=== PATIENT | male | born 1970 | race Hispanic/Latino ===

== ENCOUNTER 2019-09-07 19:55 | Observation (INO) | payer OTHER, MEDICARE ==
[~2019-09-07] VITALS: Ht 172.7 cm; Wt 120.1 kg
[2019-09-07 20:28] LABS: BASOPHILS % (AUTO) 0.6 % (0.0-5.0); EOSINOPHILS % (AUTO) 1.3 % (0.0-8.0); HEMATOCRIT 30.6 % (42-54); MEAN CORPUSCULAR HEMOGLOBIN 34.2 pg (27.0-33.0); MEAN CORPUSCULAR HGB CONC 34.3 g/dL (32.0-36.0); MEAN CORPUSCULAR VOLUME 99.7 fL (79-99); MONOCYTES % (AUTO) 13.2 % (3.0-13.0); NEUTROPHILS % (AUTO) 74.7 % (40.0-77.0); PLATELET COUNT (AUTO) 54 K/uL (130-400); RED BLOOD CELL COUNT(AUTO) 3.07 MIL/uL (4.50-6.20); WHITE BLOOD COUNT (AUTO) 4.7 K/uL (4.8-10.8)
[2019-09-07 20:33] LABS: CREATININE 0.9 mg/dL (0.5-1.5); POTASSIUM 3.4 mmol/L (3.5-5.1)
[2019-09-07 20:37] LABS: INR 1.4 (0.85-1.15); PARTIAL THROMBOPLASTIN TIME 30.2 SEC (26.3-35.5); PROTHROMBIN TIME 14.9 SEC (9.6-11.6)
[2019-09-07 20:38] LABS: ALBUMIN 1.9 g/dL (3.5-5.0); BILIRUBIN,TOTAL 4.5 mg/dL (0.2-1.0); TOTAL PROTEIN, SERUM 6.3 g/dL (6.0-8.3)
[2019-09-07 21:17] LABS: APPEARANCE,URINE Clear (CLEAR); BILIRUBIN,URINE Moderate (NEGATIVE); GLUCOSE, URINE (UA) Negative (NEGATIVE); KETONES,URINE 15 mg/dL (NEGATIVE); LEUKOCYTE ESTERASE ,URINE Small (NEGATIVE); NITRATE,URINE Positive (NEGATIVE); OCCULT BLOOD,URINE Negative (NEGATIVE); PH,URINE 7.5 (5.0-8.0); PROTEIN,URINE Trace mg/dL (NEGATIVE)
[2019-09-07 21:22] LABS: COLOR,URINE Orange (YELLOW)
[2019-09-07 21:26] LABS: PLATELET MORPHOLOGY COMMENT DECREASED
[2019-09-07 21:34] LABS: BACTERIA,URINE Rare /HPF (None Seen); RBC,URINE None Seen /HPF (0-1); SQUAMOUS EPITHELIAL CELL,UR Few /HPF (0-2)
[2019-09-07 23:50] VITALS: BP 109/65
[2019-09-08] MEDS ORDERED: QUET200T29 PO (00:15)
[2019-09-08] MEDS ORDERED: DIAZ5TAB4 PO (00:15)
[2019-09-08] MEDS ORDERED: SPIR50TA PO (00:15)
[2019-09-08] MEDS ORDERED: OMEP20CA12 PO (00:15)
[2019-09-08] MEDS ORDERED: MORPHINE SULFATE 2 MG/ML 1ML SYG IVP ONE (00:30)
--- NOTE | 2019-09-08 00:30 | NUR ---
spoke with sterling sanchez np for patient's severe pain. he ordered morphine 2 mg iv once. i let him know about patient's home medications and he ordered to pass it on in the morning
[2019-09-08 03:45] VITALS: BP 128/85
--- NOTE | 2019-09-08 03:52 | NUR ---
patient refuses to be bathed for paracentesis procedure.
[2019-09-08 08:00] VITALS: BP 125/82
[2019-09-08] MEDS ORDERED: CEFTRIAXONE SODIUM 1 GM IVP SCH (09:00)
[2019-09-08] MEDS ORDERED: LACTULOSE 20 GM/30 ML UDCUP PO SCH (09:00)
[2019-09-08] MEDS ORDERED: SPIRONOLACTONE 25 MG TAB PO SCH (09:00)
[2019-09-08] MEDS ORDERED: HYDROMORPHONE HCL 0.5 MG/0.5 ML ML IVP SCH (10:30)
[2019-09-08] MEDS ORDERED: DIAZEPAM 5 MG TABLET PO SCH ×2 (11:00→21:00)
[2019-09-08 11:27] VITALS: BP 124/84
--- NOTE | 2019-09-08 12:00 | NUR ---
CORRIE NOTES- DCP PLAN MET W PATIENT AT BEDSIDE, PENDING PARACENTESIS, RESTLESS, STATES AMBULATORY, ACTIVE, NO DEM, NO PROVIDER, NO SERVICES, LIVES WIHT DAD FARIBA, DO NOT PUT HIM ON FACE SHEET,MOM ONLY ON FACE SHEET, NUMBERS VERIFIES, STATES DAD WILL PROIVDE TRANSPORT HOEM. 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 STATES FIRST TIME HE HAS HAD A PARACENTESIS. STATES VERY ANXIOUS ABOUT IT. TEACHING DONE. CALLED OT RADIOLOGY, ADVISD THEM OF H/P READY. Addendum: 09/08/19 at 1314 by ELAN RUTHERFORD RN CM Amended: Links added.
--- NOTE | 2019-09-08 13:15 | NUR ---
EXPECTED DISPO--TO BE TO HOME, DAD TO TRANSPORT, NO OTHER NEEDS ANTICIPATED Addendum: 09/08/19 at 1316 by ELAN RUTHERFORD RN CM Amended: Links added.
--- NOTE | 2019-09-08 13:20 | NUR ---
Patient went out for procedure per NORMA Oneal Will attempt to initiate Skilled Physical Therapy Evaluation 09/09/2019. Addendum: 09/08/19 at 1404 by VASU SANTOS, PT PT Amended: Links added.
[2019-09-08] MEDS ORDERED: POTASSIUM CHLORIDE 20 MEQ ERTAB PO PRN (13:30)
[2019-09-08] MEDS ORDERED: POTASSIUM CHLORIDE 10% ELIXIR 20 MEQ/15 ML UDCUP PO PRN (13:30)
[2019-09-08] MEDS ORDERED: LIDOCAINE HCL-MPF 1% 2ML VIAL IV PRN (13:30)
[2019-09-08] MEDS ORDERED: POTASSIUM CHLORIDE 20MEQ/100ML 100 ML IV PRN (13:30)
--- NOTE | 2019-09-08 13:52 | NUR ---
U/S GD PARACENTESIS PROCEDURE PERFORMED BY DR. COLEMAN. PUNCTURE SITE RIGHT LOWER QUADRANT OF ABDOMEN AND PATIENT TOLERATED PROCEDURE WELL. TOTAL REMOVED 6.65 LITERS OF CLOUDY YELLOW FLUID. END OF PROCEDURE AT 1340. CATHETER REMOVED AND DRESSING APPLIED. NO BLEEDING NOTED. ALBUMIN 25% 50 GRAMS ORDERED PER [facility] [place] [facility]. REPORT GIVEN TO Rosi ROMO LVN AND PATIENT TRANSPORTED TO [facility] VIA W/C, STABLE, AAO X3 WITH NO C/O PAIN. SPECIMEN SENT TO LAB.
--- NOTE | 2019-09-08 13:55 | NUR ---
PARACENTESIS PROCEDURE PERFORMED BY DR. COLEMAN. PUNCTURE SITE RIGHT LOWER QUADRANT OF ABDOMEN, DRESSING CLEAN AND DRY. 6.6 LITERS TAKEN OUT. PT REFUSES POST OP VITAL SIGNS. AND STATES IS GOING TO LEAVE AMA. PT WAS INFORMED OF RISKS TO LEAVING AMA,, SUCH BLOOD PRESSURE DROPPING, FAINTING, PASSING OUT , OR EVEN DYING AND THAT THE HOSPITAL WOULD NOT BE LIABLE BECAUSE HE IS LEAVING AGAINST MEDICAL ADVICE. PT RESPECTFULLY STATES UNDERSTANDING AND STATES WILL SIGN HIMSELF OUT. HE THANKS US FOR EVERYTHING WE HAVE DONE BUT STATES HE WANTS TO LEAVE. CHARGE NURSE YO YANCEY AND CHERISE DELATORRE MADE AWARE.
--- NOTE | 2019-09-08 14:25 | NUR ---
PT SIGNED AMA FORM. I INFORMED PT OF RISKS OF LEAVING AGAINST MEDICAL ADVISE, AND EXPLAINED THAT 6.6 LITERS WAS A LOT OF FLUID REMOVED, PT STATED UNDERSTANDING AND INSISTED IN LEAVING. IPV REMOVED, TIP INTACT. CHARGE NURSE YO YANCEY MADE AWARE.
[2019-09-08] MEDS ORDERED: ALBUMIN (HUMAN) 25% 200 ML IV SCH (14:52)
[2019-09-08 17:09] LABS: APPEARANCE BODY FLUID SLIGHTLY CLOUDY (CLEAR); COLOR,BODY FLUID YELLOW (LT YELLOW); SPECIMENTYPE,BODY FLUID ASCITES; TOTAL VOLUME,BODY FLUID 6600 mL
[2019-09-08 17:11] LABS: BODY FLUID WBC 152 /cu. mm.
[2019-09-08 17:12] LABS: BODY FLUID RBC 497 /cu. mm.
[2019-09-08 17:21] LABS: BF LYMPHOCYTE 27 %; BF MONOCYTE 3 %
[2019-09-08] MEDS ORDERED: QUETIAPINE FUMARATE 100 MG TAB PO SCH (21:00)
== END 2019-09-08 14:55 | disposition left against medical advice (07) ==
LOC: EDH 19:55 → EDHIP 21:50 → 3CH 23:30
PROVIDERS: ADMIT Internal Medicine Critical Care Medicine; ATTEND Internal Medicine Critical Care Medicine
DX: K70.31 Alcoholic cirrhosis of liver with ascites (principal); N39.0 Urinary tract infection, site not specified; F41.1 Generalized anxiety disorder; D69.6 Thrombocytopenia, unspecified; F20.9 Schizophrenia, unspecified; Z87.891 Personal history of nicotine dependence; E43 Unspecified severe protein-calorie malnutrition
CPT/HCPCS: 36415; 49083; 71045; 80053; 81001; 82140; 82550; 83690; 84484; 85025; 85610; 85730; 87071; 87088; 87205; 89051; 93005; 96374; 96375; 99285; A4215; G0378 ×4; J0696; J1170; P9046

== ENCOUNTER → 2019-09-14 | Outpatient (CLI) | payer OTHER, MEDICARE ==
[~2019-09-14] MED LIST: ALBUMIN (HUMAN) 25% 100 ML IV SCH; ALBUMIN (HUMAN) 25% 200 ML IV ONE; ALBUMIN (HUMAN) 25% 200 ML IV SCH; DIAZ5TAB4 PO; OMEP20CA12 PO; QUET200T29 PO; SPIR50TA PO
--- NOTE | 2019-09-14 08:45 | NUR ---
U/S GD PARACENTESIS PROCEDURE PERFORMED BY DR. BAUTISTA. PUNCTURE SITE RIGHT LOWER QUADRANT OF ABDOMEN AND PATIENT TOLERATED PROCEDURE WELL. TOTAL REMOVED 4.1 LITERS OF CLOUDY YELLOW FLUID. END OF PROCEDURE AT 0915. CATHETER REMOVED AND DRESSING APPLIED. NO BLEEDING NOTED. ALBUMIN 25% 25 GRAMS GIVEN DURING PROCEDURE PER [facility] [place] [facility]. LEFT HAND PIV DC'D, BANDAID APPLIED, DRESSING DRY AND INTACT. DISCHARGE INSTRUCTIONS GIVEN TO PATIENT. PATIENT VERBALIZED UNDERSTANDING. PT DISCHARGED AMBULATORY, STABLE, AAO X3 WITH NO C/O PAIN. SPECIMEN SENT TO LAB.
[2019-09-14 11:22] LABS: APPEARANCE BODY FLUID CLOUDY (CLEAR); BODY FLUID WBC 421 /cu. mm.; COLOR,BODY FLUID YELLOW (LT YELLOW); SPECIMENTYPE,BODY FLUID ASCITES; TOTAL VOLUME,BODY FLUID 4100 mL
[2019-09-14 11:23] LABS: BODY FLUID RBC 875 /cu. mm.
[2019-09-14 11:25] LABS: BF LYMPHOCYTE 44 %; BF MONOCYTE 49 %
== END | disposition home or self-care (01) ==
LOC: RAH 07:29
PROVIDERS: ATTEND Family Medicine
DX: K70.31 Alcoholic cirrhosis of liver with ascites (principal); F10.10 Alcohol abuse, uncomplicated; I10 Essential (primary) hypertension; F31.9 Bipolar disorder, unspecified; K21.9 Gastro-esophageal reflux disease without esophagitis; E66.9 Obesity, unspecified; F13.20 Sedative, hypnotic or anxiolytic dependence, uncomplicated; Z82.61 Family history of arthritis; Z83.3 Family history of diabetes mellitus; Z68.31 Body mass index [BMI] 31.0-31.9, adult
CPT/HCPCS: 49083; 87071; 87205; 89051; A4215; P9046 ×2; 96365

== ENCOUNTER 2019-09-19 09:28 | Emergency (ER) | payer OTHER, MEDICARE ==
[~2019-09-19 09:28] MED LIST changes: -ALBUMIN (HUMAN) 25% 100 ML IV SCH; -ALBUMIN (HUMAN) 25% 200 ML IV ONE; -ALBUMIN (HUMAN) 25% 200 ML IV SCH
[2019-09-19] MEDS ORDERED: ACETAMINOPHEN EXTRA STRENGTH 500 MG TABLET ONE (10:03)
[2019-09-19 10:36] LABS: BASOPHILS % (AUTO) 1.4 % (0.0-5.0); EOSINOPHILS % (AUTO) 3.6 % (0.0-8.0); HEMATOCRIT 34.1 % (42-54); LYMPHOCYTES % (AUTO) 20.8 % (21.0-51.0); MEAN CORPUSCULAR HEMOGLOBIN 34.3 pg (27.0-33.0); MEAN CORPUSCULAR HGB CONC 34.9 g/dL (32.0-36.0); MEAN CORPUSCULAR VOLUME 98.3 fL (79-99); MONOCYTES % (AUTO) 12.8 % (3.0-13.0); NEUTROPHILS % (AUTO) 61.2 % (40.0-77.0); PLATELET COUNT (AUTO) 194 K/uL (130-400); RED BLOOD CELL COUNT(AUTO) 3.47 MIL/uL (4.50-6.20); RED CELL DISTRIBUTION WIDTH 15.8 % (11.0-15.5); WHITE BLOOD COUNT (AUTO) 5.8 K/uL (4.8-10.8)
[2019-09-19 10:45] LABS: CREATININE 0.6 mg/dL (0.5-1.5)
[2019-09-19 10:48] LABS: APPEARANCE,URINE Clear (CLEAR); BILIRUBIN,URINE Negative (NEGATIVE); COLOR,URINE Yellow (YELLOW); GLUCOSE, URINE (UA) Negative (NEGATIVE); KETONES,URINE Negative (NEGATIVE); LEUKOCYTE ESTERASE ,URINE Negative (NEGATIVE); NITRATE,URINE Negative (NEGATIVE); OCCULT BLOOD,URINE Negative (NEGATIVE); PROTEIN,URINE Negative (NEGATIVE); UROBILINOGEN,URINE 0.2 mg/dL (0.2-1.0)
[2019-09-19 10:55] LABS: AMPHET/METH SCREEN,URINE NEGATIVE (NEGATIVE); BARBITURATE SCREEN, URINE NEGATIVE (NEGATIVE); BENZODIAZEPINES SCREEN,URINE POSITIVE (NEGATIVE); CANNABINOID SCREEN,URINE NEGATIVE (NEGATIVE); COCAINE SCREEN,URINE NEGATIVE (NEGATIVE); OPIATE SCREEN,URINE NEGATIVE (NEGATIVE); PHENCYCLIDINE SCREEN,URINE NEGATIVE (NEGATIVE)
[2019-09-19 10:59] LABS: ALBUMIN 2.2 g/dL (3.5-5.0); BILIRUBIN,TOTAL 1.4 mg/dL (0.2-1.0); TOTAL PROTEIN, SERUM 6.9 g/dL (6.0-8.3)
[2019-09-19 11:05] LABS: INR 1.36 (0.85-1.15); PARTIAL THROMBOPLASTIN TIME 31.1 SEC (26.3-35.5); PROTHROMBIN TIME 14.5 SEC (9.6-11.6)
== END 2019-09-19 12:45 | disposition home or self-care (01) ==
LOC: EDH 09:28
DX: K40.90 Unilateral inguinal hernia, without obstruction or gangrene, not specified as recurrent (principal); K70.31 Alcoholic cirrhosis of liver with ascites; R79.1 Abnormal coagulation profile; F10.229 Alcohol dependence with intoxication, unspecified; F20.9 Schizophrenia, unspecified; Z88.1 Allergy status to other antibiotic agents; Y90.8 Blood alcohol level of 240 mg/100 ml or more
CPT/HCPCS: 36415; 74176; 76870; 80053; 80305; 81003; 85025; 85610; 85730; 99285; G0480

== ENCOUNTER 2020-01-03 18:51 | Emergency (ER) | payer OTHER, MEDICARE ==
[2020-01-03 19:54] LABS: EOSINOPHILS % (AUTO) 3.9 % (0.0-8.0); HEMATOCRIT 28.4 % (42-54); LYMPHOCYTES % (AUTO) 37.4 % (21.0-51.0); MEAN CORPUSCULAR HEMOGLOBIN 32.9 pg (27.0-33.0); MEAN CORPUSCULAR HGB CONC 35.2 g/dL (32.0-36.0); MEAN CORPUSCULAR VOLUME 93.4 fL (79-99); MONOCYTES % (AUTO) 10.4 % (3.0-13.0); PLATELET COUNT (AUTO) 53 K/uL (130-400); RED BLOOD CELL COUNT(AUTO) 3.04 MIL/uL (4.50-6.20); RED CELL DISTRIBUTION WIDTH 15.5 % (11.0-15.5); WHITE BLOOD COUNT (AUTO) 3.9 K/uL (4.8-10.8)
[2020-01-03] MEDS ORDERED: FAMOTIDINE 20MG TAB 20 MG TAB ONE (20:03)
[2020-01-03] MEDS ORDERED: ONDANSETRON ODT 4 MG TAB ONE (20:03)
[2020-01-03 20:04] LABS: CARBON DIOXIDE 25 mmol/L (21-32); CHLORIDE 108 mmol/L (101-111); CREATININE 0.7 mg/dL (0.5-1.5); GLOMERULAR FILTR. RATE CALC 128 mL/min (>60); GLUCOSE,RANDOM 91 mg/dL (70-105); POTASSIUM 3.6 mmol/L (3.5-5.1); SODIUM SERUM 142 mmol/L (136-145); UREA NITROGEN, BLOOD 6 mg/dL (7-18)
[2020-01-03 20:10] LABS: ALANINE AMINOTRANSFERASE 23 U/L (12-78); ALBUMIN 3.1 g/dL (3.5-5.0); ASPARTATE AMINOTRANSFERASE 98 U/L (10-37); BILIRUBIN,TOTAL 3.5 mg/dL (0.2-1.0); TOTAL PROTEIN, SERUM 7.6 g/dL (6.0-8.3)
[2020-01-03 20:11] LABS: ACETAMINOPHEN < 1 mcg/mL (10-29); SALICYLATE < 2.8 mg/dL (2.8-20.0)
[2020-01-03 20:16] LABS: ALCOHOL, BLOOD 373 mg/dL (0-10)
[2020-01-03] MEDS ORDERED: LORAZEPAM 2 MG/ML 1 ML VIAL ONE (20:46)
[2020-01-03 21:05] LABS: APPEARANCE,URINE Clear (CLEAR); BILIRUBIN,URINE Negative (NEGATIVE); COLOR,URINE Yellow (YELLOW); GLUCOSE, URINE (UA) Negative (NEGATIVE); KETONES,URINE Negative (NEGATIVE); LEUKOCYTE ESTERASE ,URINE Negative (NEGATIVE); NITRATE,URINE Negative (NEGATIVE); OCCULT BLOOD,URINE Negative (NEGATIVE); PROTEIN,URINE Negative (NEGATIVE)
[2020-01-03 21:12] LABS: AMPHET/METH SCREEN,URINE NEGATIVE (NEGATIVE); BARBITURATE SCREEN, URINE NEGATIVE (NEGATIVE); BENZODIAZEPINES SCREEN,URINE POSITIVE (NEGATIVE); CANNABINOID SCREEN,URINE NEGATIVE (NEGATIVE); COCAINE SCREEN,URINE NEGATIVE (NEGATIVE); OPIATE SCREEN,URINE NEGATIVE (NEGATIVE); PHENCYCLIDINE SCREEN,URINE NEGATIVE (NEGATIVE)
== END 2020-01-03 21:52 ==
LOC: EDH 18:51
DX: F10.129 Alcohol abuse with intoxication, unspecified (principal); R45.6 Violent behavior; F32.9 Major depressive disorder, single episode, unspecified; F20.9 Schizophrenia, unspecified; Z88.1 Allergy status to other antibiotic agents; Y90.8 Blood alcohol level of 240 mg/100 ml or more
CPT/HCPCS: 36415; 80053; 80305; 81003; 85025; 93005; 96372; 99284; G0481; J2060

== ENCOUNTER 2020-01-26 12:09 | Emergency (ER) | payer OTHER, MEDICARE ==
[2020-01-26 13:58] LABS: BASOPHILS % (AUTO) 1.6 % (0.0-5.0); EOSINOPHILS % (AUTO) 4.6 % (0.0-8.0); HEMATOCRIT 32.8 % (42-54); LYMPHOCYTES % (AUTO) 40.2 % (21.0-51.0); MEAN CORPUSCULAR HGB CONC 33.5 g/dL (32.0-36.0); MEAN CORPUSCULAR VOLUME 95.3 fL (79-99); MONOCYTES % (AUTO) 6.9 % (3.0-13.0); NEUTROPHILS % (AUTO) 46.7 % (40.0-77.0); PLATELET COUNT (AUTO) 95 K/uL (130-400); RED BLOOD CELL COUNT(AUTO) 3.44 MIL/uL (4.50-6.20); RED CELL DISTRIBUTION WIDTH 16.7 % (11.0-15.5); WHITE BLOOD COUNT (AUTO) 3.1 K/uL (4.8-10.8)
[2020-01-26 14:14] LABS: CREATININE 0.8 mg/dL (0.5-1.5); INR 1.42 (0.85-1.15); PARTIAL THROMBOPLASTIN TIME 35.7 SEC (26.3-35.5); PROTHROMBIN TIME 15.1 SEC (9.6-11.6)
[2020-01-26 14:20] LABS: ALBUMIN 3.3 g/dL (3.5-5.0); BILIRUBIN,TOTAL 2.3 mg/dL (0.2-1.0); TOTAL PROTEIN, SERUM 8.1 g/dL (6.0-8.3)
== END 2020-01-26 16:08 | disposition home or self-care (01) ==
LOC: EDH 12:09
DX: K70.31 Alcoholic cirrhosis of liver with ascites (principal); F10.129 Alcohol abuse with intoxication, unspecified; R60.0 Localized edema; Z20.828 Contact with and (suspected) exposure to other viral communicable diseases; F20.9 Schizophrenia, unspecified; F32.9 Major depressive disorder, single episode, unspecified; Z88.1 Allergy status to other antibiotic agents; Y90.8 Blood alcohol level of 240 mg/100 ml or more
CPT/HCPCS: 36415; 71045; 80053; 82140; 83880; 85025; 85610; 85730; 87426

== ENCOUNTER 2020-01-27 02:57 | Emergency (ER) | payer OTHER, MEDICARE ==
[2020-01-27 03:20] LABS: BASOPHILS % (AUTO) 1.6 % (0.0-5.0); EOSINOPHILS % (AUTO) 6.1 % (0.0-8.0); HEMATOCRIT 30.9 % (42-54); LYMPHOCYTES % (AUTO) 42.6 % (21.0-51.0); MEAN CORPUSCULAR HGB CONC 34.3 g/dL (32.0-36.0); MEAN CORPUSCULAR VOLUME 93.4 fL (79-99); MONOCYTES % (AUTO) 8.4 % (3.0-13.0); NEUTROPHILS % (AUTO) 41.3 % (40.0-77.0); PLATELET COUNT (AUTO) 92 K/uL (130-400); RED BLOOD CELL COUNT(AUTO) 3.31 MIL/uL (4.50-6.20); RED CELL DISTRIBUTION WIDTH 16.6 % (11.0-15.5); WHITE BLOOD COUNT (AUTO) 3.8 K/uL (4.8-10.8)
[2020-01-27 03:23] LABS: CREATININE 0.8 mg/dL (0.5-1.5); POTASSIUM 3.6 mmol/L (3.5-5.1)
[2020-01-27 03:28] LABS: ALBUMIN 3.2 g/dL (3.5-5.0); BILIRUBIN,TOTAL 2.6 mg/dL (0.2-1.0); TOTAL PROTEIN, SERUM 7.9 g/dL (6.0-8.3)
[2020-01-27] MEDS ORDERED: FUROSEMIDE 10 MG/ML 4ML VIAL ONE (03:32)
== END 2020-01-27 04:04 | disposition home or self-care (01) ==
LOC: EDH 02:57
DX: R60.0 Localized edema (principal); F32.9 Major depressive disorder, single episode, unspecified; F20.9 Schizophrenia, unspecified; Z88.1 Allergy status to other antibiotic agents
CPT/HCPCS: 36415; 80053; 85025; 96374; 99283; J1940

== ENCOUNTER 2020-02-03 17:37 | Emergency (ER) | payer OTHER, MEDICARE ==
[2020-02-03] MEDS ORDERED: DIAZEPAM 5 MG TABLET ONE (18:46)
== END 2020-02-03 19:00 | disposition home or self-care (01) ==
LOC: EDH 17:37
DX: F20.9 Schizophrenia, unspecified (principal); F41.9 Anxiety disorder, unspecified; F32.9 Major depressive disorder, single episode, unspecified; Z88.1 Allergy status to other antibiotic agents

== ENCOUNTER 2020-02-06 14:19 | Emergency (ER) | payer OTHER, MEDICARE ==
[2020-02-06 14:46] LABS: APPEARANCE,URINE Clear (CLEAR); BILIRUBIN,URINE Small (NEGATIVE); COLOR,URINE Dark Yellow (YELLOW); GLUCOSE, URINE (UA) Negative (NEGATIVE); KETONES,URINE Negative (NEGATIVE); LEUKOCYTE ESTERASE ,URINE Small (NEGATIVE); NITRATE,URINE Negative (NEGATIVE); OCCULT BLOOD,URINE Trace (NEGATIVE); PH,URINE 7.5 (5.0-8.0); PROTEIN,URINE Negative (NEGATIVE)
[2020-02-06 14:54] LABS: AMPHET/METH SCREEN,URINE NEGATIVE (NEGATIVE); BARBITURATE SCREEN, URINE NEGATIVE (NEGATIVE); BENZODIAZEPINES SCREEN,URINE POSITIVE (NEGATIVE); CANNABINOID SCREEN,URINE NEGATIVE (NEGATIVE); COCAINE SCREEN,URINE NEGATIVE (NEGATIVE); OPIATE SCREEN,URINE NEGATIVE (NEGATIVE); PHENCYCLIDINE SCREEN,URINE NEGATIVE (NEGATIVE)
[2020-02-06] MEDS ORDERED: DIAZEPAM 5 MG/ML 2 ML SYG ONE (14:54)
[2020-02-06 14:58] LABS: BACTERIA,URINE Rare /HPF (None Seen); WBC,URINE 0-1 /HPF (0-1)
[2020-02-06 14:58] LABS: BASOPHILS % (AUTO) 1.3 % (0.0-5.0); EOSINOPHILS % (AUTO) 2.7 % (0.0-8.0); HEMATOCRIT 28.8 % (42-54); LYMPHOCYTES % (AUTO) 28.7 % (21.0-51.0); MEAN CORPUSCULAR HEMOGLOBIN 32.2 pg (27.0-33.0); MEAN CORPUSCULAR VOLUME 94.7 fL (79-99); MONOCYTES % (AUTO) 14.3 % (3.0-13.0); NEUTROPHILS % (AUTO) 52.6 % (40.0-77.0); PLATELET COUNT (AUTO) 19 K/uL (130-400); RED BLOOD CELL COUNT(AUTO) 3.04 MIL/uL (4.50-6.20); RED CELL DISTRIBUTION WIDTH 17.2 % (11.0-15.5); WHITE BLOOD COUNT (AUTO) 2.2 K/uL (4.8-10.8)
[2020-02-06] MEDS ORDERED: COMPOUND IV REFRIGERATED 1 EACH IVSOLN MISC PRN (15:00)
[2020-02-06 15:01] LABS: SQUAMOUS EPITHELIAL CELL,UR Rare /HPF (0-2)
[2020-02-06 15:08] LABS: CARBON DIOXIDE 25 mmol/L (21-32); CHLORIDE 106 mmol/L (101-111); CREATININE 0.7 mg/dL (0.5-1.5); GLOMERULAR FILTR. RATE CALC 128 mL/min (>60); GLUCOSE,RANDOM 92 mg/dL (70-105); POTASSIUM 3.8 mmol/L (3.5-5.1); SODIUM SERUM 139 mmol/L (136-145); UREA NITROGEN, BLOOD 7 mg/dL (7-18)
[2020-02-06 15:12] LABS: ALANINE AMINOTRANSFERASE 34 U/L (12-78); ALBUMIN 2.8 g/dL (3.5-5.0); ALCOHOL, BLOOD 125 mg/dL (0-10); ASPARTATE AMINOTRANSFERASE 149 U/L (10-37); BILIRUBIN,TOTAL 3.3 mg/dL (0.2-1.0); TOTAL PROTEIN, SERUM 7.7 g/dL (6.0-8.3)
[2020-02-06 15:27] LABS: ACETAMINOPHEN < 1 mcg/mL (10-29); SALICYLATE < 2.8 mg/dL (2.8-20.0)
[2020-02-06 15:45] LABS: BAND NEUTROPHILS % (MANUAL) 2 % (0-2); BASOPHILS % (MANUAL) 1 % (0-2); EOSINOPHILS % (MANUAL) 1 % (1-6); LYMPHOCYTES % (MANUAL) 27 % (22-44); MAN.DIFF COMMENT-IMPRESSION MANUAL DIFFERENTIAL; MONOCYTES % (MANUAL) 7 % (2-9); REACTIVE LYMPHOCYTES 5 % (0-0); SEGMENTED NEUTROPHILS % 57 % (40-70)
[2020-02-06 15:52] LABS: PLATELET MORPHOLOGY COMMENT MARKED DECREASE
[2020-02-06] MEDS ORDERED: M.V.I. IV [ADULT] 10 ML, THIAMINE HCL 100 MG, FOLIC ACID 1 MG in SODIUM CHLORIDE 0.9% 1... IV ONE (16:00)
== END 2020-02-06 17:18 | disposition home or self-care (01) ==
LOC: EDH 14:19
DX: F10.239 Alcohol dependence with withdrawal, unspecified (principal); F20.9 Schizophrenia, unspecified; K70.30 Alcoholic cirrhosis of liver without ascites; F32.9 Major depressive disorder, single episode, unspecified; Z88.6 Allergy status to analgesic agent
CPT/HCPCS: 36415; 80053; 80305; 81001; 85025; 96365; 96366; 96375; 99284; G0481; J3360; J3411; J3490; J7030

== ENCOUNTER 2020-02-07 09:39 | Emergency (ER) | payer OTHER, MEDICARE ==
[2020-02-07] MEDS ORDERED: ASPIRIN 325 MG TABLET ONE (09:58)
[2020-02-07] MEDS ORDERED: NITROGLYCERIN 0.4 MG SL TAB SL ONE (09:58)
[2020-02-07] MEDS ORDERED: DIAZEPAM 5 MG/ML 2 ML SYG ONE (09:59)
[2020-02-07 10:05] LABS: BASOPHILS % (AUTO) 1.1 % (0.0-5.0); EOSINOPHILS % (AUTO) 3.2 % (0.0-8.0); HEMATOCRIT 30.9 % (42-54); LYMPHOCYTES % (AUTO) 22.2 % (21.0-51.0); MEAN CORPUSCULAR HEMOGLOBIN 31.9 pg (27.0-33.0); MEAN CORPUSCULAR VOLUME 93.9 fL (79-99); MONOCYTES % (AUTO) 13.2 % (3.0-13.0); NEUTROPHILS % (AUTO) 60.3 % (40.0-77.0); PLATELET COUNT (AUTO) 13 K/uL (130-400); RED BLOOD CELL COUNT(AUTO) 3.29 MIL/uL (4.50-6.20); RED CELL DISTRIBUTION WIDTH 16.5 % (11.0-15.5); WHITE BLOOD COUNT (AUTO) 1.9 K/uL (4.8-10.8)
[2020-02-07 10:15] LABS: APPEARANCE,URINE CLEAR (CLEAR); BILIRUBIN,URINE MODERATE (NEGATIVE); COLOR,URINE ORANGE (YELLOW); CREATININE 0.7 mg/dL (0.5-1.5); GLUCOSE, URINE (UA) 100 mg/dL (NEGATIVE); KETONES,URINE 15 mg/dL (NEGATIVE); LEUKOCYTE ESTERASE ,URINE NEGATIVE (NEGATIVE); NITRATE,URINE NEGATIVE (NEGATIVE); OCCULT BLOOD,URINE TRACE-INTACT (NEGATIVE); PH,URINE 7.5 (5.0-8.0); POTASSIUM 3.3 mmol/L (3.5-5.1); PROTEIN,URINE NEGATIVE (NEGATIVE); UROBILINOGEN,URINE >=8.0 mg/dL (0.2-1.0)
[2020-02-07 10:16] LABS: INR 1.68 (0.85-1.15); PARTIAL THROMBOPLASTIN TIME 35.5 SEC (26.3-35.5); PROTHROMBIN TIME 17.8 SEC (9.6-11.6)
[2020-02-07 10:17] LABS: AMPHET/METH SCREEN,URINE NEGATIVE (NEGATIVE); BARBITURATE SCREEN, URINE NEGATIVE (NEGATIVE); BENZODIAZEPINES SCREEN,URINE POSITIVE (NEGATIVE); CANNABINOID SCREEN,URINE NEGATIVE (NEGATIVE); COCAINE SCREEN,URINE NEGATIVE (NEGATIVE); OPIATE SCREEN,URINE NEGATIVE (NEGATIVE); PHENCYCLIDINE SCREEN,URINE NEGATIVE (NEGATIVE)
[2020-02-07 10:19] LABS: ALBUMIN 3.2 g/dL (3.5-5.0); BILIRUBIN,TOTAL 6.2 mg/dL (0.2-1.0)
[2020-02-07 10:25] LABS: BACTERIA,URINE Rare /HPF (None Seen); MUCUS,URINE Few LPF (None Seen); RBC,URINE 0-1 /HPF (0-1); SQUAMOUS EPITHELIAL CELL,UR Rare /HPF (0-2)
[2020-02-07] MEDS ORDERED: LEVOFLOXACIN 500 MG/D5W 100 ML 100 ML ONE (14:29)
== END 2020-02-07 13:19 | disposition left against medical advice (07) ==
LOC: EDH 09:39
DX: R07.89 Other chest pain (principal); R53.1 Weakness; F32.9 Major depressive disorder, single episode, unspecified; F20.9 Schizophrenia, unspecified; Z87.891 Personal history of nicotine dependence; Z88.2 Allergy status to sulfonamides
CPT/HCPCS: 36415; 71045; 80053; 80305; 82550; 83690; 84484; 85025; 85610; 85730; 93005; 96374; 99285; J1956; J3360